=== PATIENT | female | born 1940 | race Caucasian/White ===

== ENCOUNTER 2019-06-05 09:53 | Outpatient (CLI) | payer MEDICARE, OTHER | END 2019-06-05 09:54 | disposition home or self-care (01) | LOC: DI 09:53 | PROVIDERS: ATTEND Internal Medicine | DX: Z12.31 Encounter for screening mammogram for malignant neoplasm of breast (principal) | CPT/HCPCS: 77063; 77067 ==

== ENCOUNTER 2021-12-22 08:00 | Outpatient (CLI) | payer MEDICARE, OTHER | END 2021-12-22 23:59 | LOC: LAB.R 08:00 | PROVIDERS: ATTEND Internal Medicine | DX: K52.9 Noninfective gastroenteritis and colitis, unspecified (principal) | CPT/HCPCS: 81599; 83630; 87045; 87177; 87209; 87329; 87427; 87449; 87493 ==

== ENCOUNTER 2022-07-17 15:19 | Outpatient (CLI) | payer MEDICARE, OTHER ==
[2022-07-17 15:42] LABS: BILIRUBIN,DIRECT 0.1 mg/dL (0.1-0.5); BILIRUBIN,TOTAL 0.5 mg/dL (0.2-1.0); TOTAL PROTEIN 7.8 g/dL (6.7-8.2)
== END 2022-07-17 15:20 | disposition home or self-care (01) ==
LOC: LAB 15:19
PROVIDERS: ATTEND Internal Medicine
DX: K75.0 Abscess of liver (principal); R74.8 Abnormal levels of other serum enzymes
CPT/HCPCS: 36415; 80076

== ENCOUNTER 2022-12-24 12:33 | Outpatient (CLI) | payer MEDICARE, OTHER ==
--- NOTE | 2022-12-24 19:32 | XRAY Report ---
PROCEDURE: Lumbar Spine 2 View INDICATIONS: LOW BACK PAIN TECHNIQUE: 2 views of the lumbar spine were acquired. COMPARISON: None. FINDINGS: Bones: 5 [id number] vertebrae are present. There is normal bony alignment. Small vertebral dayron dy osteophytes. Minimal multilevel spondylolisthesis. Lower lumbar spine facet joint hypertrophy. No vertebral body compression fractures. No suspicious bony lesions. Soft tissues: Overlying bowel gas pattern is normal. No suspicious soft tissue calcifications. Cho lecystectomy clips. IMPRESSION: Moderate degenerative change in the lumbar spine. No compression fracture. Reviewed by: Julio C Lewis MD on 12/24/2022 7:31 PM PST Approved by: Julio C Lewis MD on 12/24/2022 7:31 PM PST Station ID: [id number]
--- NOTE | 2022-12-24 19:33 | XRAY Report ---
PROCEDURE: Pelvis 1 View INDICATIONS: LOW BACK PAIN TECHNIQUE: 1 view(s) of the pelvis acquired. COMPARISON: None. FINDINGS: Bones: No fractures or dislocations. Moderate bilateral hip DJD. No suspicious bony lesions. Soft tissues: Visualized bowel gas pattern is normal. No suspicious soft tissue calcifications. IMPRESSION: Moderate bilateral hip DJD. Reviewed by: Julio C Lewis MD on 12/24/2022 7:32 PM PST Approved by: Julio C Lewis MD on 12/24/2022 7:32 PM PST Station ID: [id number]
== END 2022-12-24 12:34 | disposition home or self-care (01) ==
LOC: DI 12:33
PROVIDERS: ATTEND Internal Medicine
DX: M47.816 Spondylosis without myelopathy or radiculopathy, lumbar region (principal); M16.0 Bilateral primary osteoarthritis of hip

== ENCOUNTER 2023-02-16 12:15 | Outpatient (CLI) | payer MEDICARE, OTHER ==
--- NOTE | 2023-02-16 13:01 | CT Report ---
PROCEDURE: CT brain without contrast INDICATIONS: APHASIA,HYPERTNESION,NUMBNESS TECHNIQUE: Noncontrast 4.5 mm thick angled axial sections acquired from the foramen magnum to the vertex. For r adiation dose reduction, the following was used: automated exposure control, adjustment of mA and/or kV according to patient size. COMPARISON: None. FINDINGS: Image quality: Excellent. CSF spaces: Basal cisterns are patent. No extra-axial fluid collections. Ventricles are normal in size and shape. Brain: No midline shift. No intracranial masses or hemorrhage. Angela-white matter interface is norm al. Atrophy and white matter chronic ischemic change noted. Dense ICA vascular calcification in the cavernous segments. Skull and face: Calvarium and visualized facial bones are intact, without suspicious lesions. Incid ental hyperostosis interna Sinuses: Mucosal thickening noted in the frontal and anterior ethmoid sinuses IMPRESSION: Moderate atrophy and white matter chronic ischemic change Reviewed by: Shreyas Hackett MD on 02/16/2023 12:00 PM MERRY Approved by: Shreyas Hackett MD on 02/16/2023 12:00 PM AKDT Station ID: [id number]
== END 2023-02-16 12:16 | disposition home or self-care (01) ==
LOC: DI 12:15
PROVIDERS: ATTEND Internal Medicine
DX: R20.0 Anesthesia of skin (principal); I10 Essential (primary) hypertension; R47.01 Aphasia; G31.89 Other specified degenerative diseases of nervous system; I67.82 Cerebral ischemia

== ENCOUNTER 2023-03-08 14:16 | Outpatient (CLI) | payer MEDICARE, OTHER ==
[2023-03-08 14:35] LABS: BASOPHILS % (AUTO) 0.4 %; EOSINOPHILS % (AUTO) 1.1 %; HCT - HEMATOCRIT 39.4 % (37.0-47.0); HGB - HEMOGLOBIN 13.1 g/dL (12.0-16.0); LYMPHOCYTES % (AUTO) 50.7 %; MEAN CORPUSCULAR HEMOGLOBIN 30.2 pg (27.0-31.0); MEAN CORPUSCULAR HGB CONC 33.2 g/dL (32.0-36.0); MEAN CORPUSCULAR VOLUME 90.8 fL (81.0-99.0); MEAN PLATELET VOLUME 9.1 fL (7.9-10.8); NEUTROPHILS % (AUTO) 42.6 %; PLT - PLATELET COUNT 283 10^3/uL (130-450); RED BLOOD COUNT 4.34 10^6/uL (4.20-5.40); RED CELL DISTRIBUTION WIDTH 12.3 % (12.0-15.0); WHITE BLOOD COUNT 14.2 x10^3/uL (4.8-10.8)
[2023-03-08 14:37] LABS: SLIDE REVIEW? Indicated
[2023-03-08 14:38] LABS: ABNORMAL LYMPHS % (MANUAL) 0 %; BAND NEUTROPHILS % (MANUAL) 0 %
[2023-03-08 14:47] LABS: ALBUMIN 4.2 g/dL (3.2-5.5); BILIRUBIN,TOTAL 1.8 mg/dL (0.2-1.0); CALCIUM 9.4 mg/dL (8.5-10.3); CREATININE 1.1 mg/dL (0.4-1.0); TOTAL PROTEIN 8.4 g/dL (6.7-8.2)
[2023-03-08 14:56] LABS: EOSINOPHILS # (MANUAL) 0.3 10^3/uL (0-0.7); LYMPHOCYTES % (MANUAL) 49 %; MONOCYTES # (MANUAL) 0.1 10^3/uL (0.0-1.0); NEUTROPHILS # (MANUAL) 6.8 10^3/uL (1.5-6.6)
[2023-03-08 14:58] LABS: DIFFERENTIAL COMMENT MANUAL DIFFERENTIAL; PLATELET ESTIMATE, MANUAL NORMAL (130-450,000) (NORMAL); PLATELET MORPHOLOGY NORMAL APP (NORMAL); RBC MORPHOLOGY (MULTIPLE) NORMAL APPEARANCE (NORMAL)
== END 2023-03-08 14:17 | disposition home or self-care (01) ==
LOC: LAB 14:16
PROVIDERS: ATTEND Internal Medicine
DX: R10.13 Epigastric pain (principal); K83.09 Other cholangitis; K85.90 Acute pancreatitis without necrosis or infection, unspecified
CPT/HCPCS: 36415; 80053; 82150; 83690; 85025

== ENCOUNTER 2023-03-14 08:39 | Emergency (ER) | payer MEDICARE, OTHER ==
[2023-03-14 09:18] LABS: BASOPHILS # (AUTO) 0.1 10^3/uL (0.0-0.1); BASOPHILS % (AUTO) 0.5 %; EOSINOPHILS # (AUTO) 0.1 10^3/uL (0.0-0.7); EOSINOPHILS % (AUTO) 0.4 %; HCT - HEMATOCRIT 37.8 % (37.0-47.0); HGB - HEMOGLOBIN 12.7 g/dL (12.0-16.0); LYMPHOCYTES # (AUTO) 3.4 10^3/uL (1.5-3.5); MEAN CORPUSCULAR HEMOGLOBIN 30.3 pg (27.0-31.0); MEAN CORPUSCULAR HGB CONC 33.6 g/dL (32.0-36.0); MEAN CORPUSCULAR VOLUME 90.2 fL (81.0-99.0); MEAN PLATELET VOLUME 9.2 fL (7.9-10.8); MONOCYTES # (AUTO) 0.6 10^3/uL (0.0-1.0); MONOCYTES % (AUTO) 4.5 %; NEUTROPHILS % (AUTO) 70.1 %; PLT - PLATELET COUNT 270 10^3/uL (130-450); RED BLOOD COUNT 4.19 10^6/uL (4.20-5.40); RED CELL DISTRIBUTION WIDTH 12.2 % (12.0-15.0); WHITE BLOOD COUNT 14.2 x10^3/uL (4.8-10.8)
[2023-03-14 09:35] LABS: ALBUMIN 4.1 g/dL (3.2-5.5); ALBUMIN/GLOBULIN RATIO 0.9 (1.0-2.2); BILIRUBIN,TOTAL 2.1 mg/dL (0.2-1.0); CREATININE 1.1 mg/dL (0.4-1.0); POTASSIUM 2.9 mmol/L (3.5-5.0); TOTAL PROTEIN 8.7 g/dL (6.7-8.2)
[2023-03-14 09:59] LABS: BILIRUBIN,URINE NEGATIVE (NEGATIVE); GLUCOSE, URINE (UA) NEGATIVE (NEGATIVE); KETONES,URINE (UA) NEGATIVE (NEGATIVE); LEUKOCYTE ESTERASE, URINE SMALL (NEGATIVE); NITRITE,URINE NEGATIVE (NEGATIVE); OCCULT BLOOD,URINE SMALL (NEGATIVE); PROTEIN,URINE NEGATIVE (NEGATIVE); UROBILINOGEN,URINE 1 (NORMAL) E.U./dL (NORMAL)
[2023-03-14 10:03] LABS: CLARITY,URINE CLEAR (CLEAR)
[2023-03-14 10:10] LABS: BACTERIA,URINE Few /HPF (None Seen); RBC,URINE 0-5 /HPF (0-5); SQUAMOUS EPITHELIAL CELL,UR FEW Squamous (<= Few)
[2023-03-14] MEDS ORDERED: iohexoL-300 100 ML VIAL ONE (12:03)
[2023-03-14] MEDS ORDERED: iohexoL-300 100 ML VIAL IVP ONE (12:26)
--- NOTE | 2023-03-14 12:37 | CT Report ---
PROCEDURE: ABDOMEN/PELVIS W INDICATIONS: upper abd pain, elev LFTs CONTRAST: 100ml omni 300 TECHNIQUE: After the administration of IV contrast, 5 mm thick sections acquired from the diaphragms to the symp hysis. 5 mm thick coronal and sagittal reformats were acquired. For radiation dose reduction, the f ollowing was used: automated exposure control, adjustment of mA and/or kV according to patient size. COMPARISON: None FINDINGS: Image quality: Excellent. Lung bases and heart: Unremarkable. Liver: No solid mass. Gallbladder and biliary tree: Gallbladder surgically absent. There is pneumobilia within the gallblad ely Spleen: Calcifications along the posterior margin of the spleen. Pancreas: No pancreatic ductal dilation. Adrenals: No adrenal nodule. Kidneys and ureters: No hydronephrosis. No renal cystic lesion which requires follow up. No solid mas s. Bowel and peritoneum: No bowel distension. No pathologic free fluid. Lymph nodes: No central or retroperitoneal adenopathy. Vessels: No infrarenal aortic aneurysm. PELVIS Reproductive organs: The uterus is surgically absent. Bladder: No abnormal wall thickening, accounting for underdistension. Pelvic lymph nodes: No pelvic adenopathy by size criteria. Bones: No aggressive osseous abnormality. Other: No significant ventral or inguinal hernia. IMPRESSION: 1.No acute findings in the abdomen or pelvis. 2.Pneumobilia, a normal finding status post sphincterotomy and cholecystectomy. 3.Calcifications along the medial margin of the spleen likely reflects prior hemorrhage versus granul omatous disease. Reviewed by: Marquez Hall MD on 03/14/2023 11:36 AM MERRY Approved by: Marquez Hall MD on 03/14/2023 11:36 AM [email or web address] Station ID: [id number]
--- NOTE | 2023-03-14 13:36 | Ultrasound Report ---
PROCEDURE: Abdomen Limited INDICATIONS: upper abd pain, elevated LFTs TECHNIQUE: Real-time focused scanning was performed of the abdomen, with image documentation. COMPARISONS: None. FINDINGS: Liver: Liver is normal in size and homogeneous in echotexture. Increased echogenicity. Pneumobilia degrades liver evaluation. Gallbladder: Absent. Biliary ducts: Intrahepatic bile ducts are non-dilated. Extrahepatic bile duct caliber was not iden tified. Normal is 6-7 mm or less in diameter, or 10 mm or less post-cholecystectomy. Pancreas: Visualized portions of the pancreas are sonographically normal. Right kidney: Normal in size and echotexture. Right kidney measures 10.8 cm long. No hydronephrosis or nephrolithiasis. No solid masses. No complex renal cystic lesions which require follow-up. Aorta: Visualized aorta is normal in caliber at less than 3 cm. IVC: Intrahepatic inferior vena cava is patent. Miscellaneous: No free abdominal fluid. IMPRESSION: 1.Hepatic steatosis. 2.Pneumobilia, a finding of unknown clinical significance status post sphincterotomy. Reviewed by: Marquez Hall MD on 03/14/2023 12:34 PM MERRY Approved by: Marquez Hall MD on 03/14/2023 12:34 PM MERRY Station ID: [id number]
[2023-03-14] MEDS ORDERED: POTASSIUM CHLORIDE 20 MEQ TABLET PO STA (14:49)
[2023-03-14 15:09] VITALS: BP 167/91
--- NOTE | 2023-03-14 15:26 | ED Physician Documentation ---
History of Present Illness - Stated complaint Stated Complaint: ABD PX - Chief complaint Chief Complaint: Abd Pain - History obtained from History obtained from: Patient - Additonal information Additional information: The patient comes to the emergency department chief complaint of epigastric pain has been going on for the last few months. She states is just been steadily getting more intense and that she has been seeing her doctor, Dr. Dixon, for this. She says she came to the emergency department because Dr. Dixon has been trying to get her an ultrasound but has been told they have no availability. She had some laboratory studies done which showed elevated LFTs and so she is come here. She denies nausea or vomiting. She has not had any fevers or chills. She is had a history previously of a complicated course with postcholecystectomy choledocholithiasis. She had her gallbladder out over 20 years ago and then a couple of years ago, while [place], developed fevers and severe upper abdominal pain. She was found to have abscesses in her liver with choledocholithiasis. She was kept in the hospital on IV antibiotics and ERCP with sphincterotomy and stent placement was performed. She had been counseled at that time to have a repeat ERCP performed in 6 weeks but never did end up to have this done. Patient states she has been feeling well since but has developed this pain. She has had various endoscopies over the years and was told a number of years ago that she might have an ulcer. However, she never did receive any further intervention or follow-up for this. The patient is currently on Prilosec and recently had this doubled by her doctor, which has helped her symptoms. She denies jaundice. No other complaints at this time. 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(s) : None HEENT: Other Psych: Depression Musculoskeletal: Osteoarthritis Derm: None - Past Surgical History Past Surgical History: Yes General: Cholecystectomy, Appendectomy, Colonoscopy Ortho: Rotator cuff repair /[employer] APPRENTICE: Hysterectomy HEENT: Cataracts - Present Medications Home Medications: Ambulatory Orders Medication Instructions Recorded Confirmed Amlodipine Bes/Olmesartan Med 5 mg PO DAILY 01/05/14 03/14/23 [Baljeet 5-40 mg Tablet] Atorvastatin Calcium [Lipitor] 40 mg PO DAILY 01/05/14 03/14/23 Omeprazole [PriLOSEC] 20 mg PO BID 01/05/14 03/14/23 Losartan Potassium [Cozaar] 100 mg PO DAILY 03/14/23 03/14/23 Spironolactone [Aldactone] 25 mg PO DAILY 03/14/23 03/14/23 - Allergies Allergies/Adverse Reactions: Allergies Allergy/AdvReac Type Severity Reaction Status Date / Time lisinopril Allergy Severe Edema Verified 03/14/23 08:59 tape AdvReac Mild Rash Uncoded 03/14/23 08:59 - Social History Does the pt smoke?: No Smoking Status: Former smoker Does the pt drink ETOH?: Yes Does the pt have substance abuse?: No - Immunizations Immunizations are current?: Yes PD ED PE NORMAL - Vitals Vital signs reviewed: Yes - General General: Alert and oriented X 3, No acute distress, Well developed/nourished, Other (Very well-appearing elderly female in no apparent distress.) - HEENT HEENT: Atraumatic, PERRL, EOMI, Moist mucous membranes - Neck Neck: Supple, no meningeal sign - Cardiac Cardiac: RRR, No murmur - Respiratory Respiratory: No respiratory distress, Clear bilaterally - Abdomen Abdomen: Soft, Non distended, Other (Moderate tenderness epigastric region, otherwise nontender.) - Derm Derm: Normal color, Warm and dry, No rash - Extremities Extremities: No deformity, No edema - Neuro Neuro: Alert and oriented X 3 - Psych Psych: Normal mood, Normal affect Results - Vitals Vitals: Vital Signs - 24 hr 03/14/23 03/14/23 03/14/23 08:56 09:53 11:53 Temperature 36.8 C Heart Rate 101 H 93 89 Respiratory 16 16 14 Rate Blood Pressure 190/91 H 198/74 H 150/136 H O2 Saturation 98 100 100 03/14/23 03/14/23 13:17 15:07 Temperature Heart Rate 82 82 Respiratory 20 22 Rate Blood Pressure 170/83 H 167/91 H O2 Saturation 98 97 Oxygen O2 Source Room air - Labs Labs: Laboratory Tests 03/14/23 03/14/23 03/14/23 09:09 09:09 09:50 WBC 14.2 H RBC 4.19 L Hgb 12.7 Hct 37.8 MCV 90.2 MCH 30.3 MCHC 33.6 RDW 12.2 Plt Count 270 MPV 9.2 Neut # (Auto) 10.0 H Lymph # (Auto) 3.4 Haines # (Auto) 0.6 Eos # (Auto) 0.1 Baso # (Auto) 0.1 Absolute Nucleated RBC 0.00 Nucleated RBC % 0.0 Sodium 143 Potassium 2.9 L Chloride 107 Carbon Dioxide 23 Anion Gap 13.0 BUN 24 H Creatinine 1.1 H Estimated GFR (MDRD) 48 L Glucose 141 H Calcium 9.0 Total Bilirubin 2.1 H AST 172 H ALT 161 H Alkaline Phosphatase 1118 H Total Protein 8.7 H Albumin 4.1 Globulin 4.6 H Albumin/Globulin Ratio 0.9 L Lipase 83 H Urine Color YELLOW Urine Clarity CLEAR Urine pH 6.0 Ur Specific Keo 1.010 Urine Protein NEGATIVE Urine Glucose (UA) NEGATIVE Urine Ketones NEGATIVE Urine Occult Blood SMALL H Urine Nitrite NEGATIVE Urine Bilirubin NEGATIVE Urine Urobilinogen 1 (NORMAL) Ur Leukocyte Esterase SMALL H Urine RBC 0-5 Urine WBC 11-25 H Ur Squamous Epith Cells FEW Squamous Urine Bacteria Few Ur Microscopic Review INDICATED Urine Culture Comments INDICATED - Rads (name of study) Ultrasound abdomen Relevant Findings:: Prelim report reviewed (Unable to evaluate much, secondary to air), Final report received CT abdomen and pelvis Relevant Findings:: Final report received, See rad report (Pneumobilia consistent with previous stent placement and sphincterotomy. No acute findings.) PD Medical Decision Making - ED course Complexity details: reviewed old records, reviewed results, re-evaluated patient, considered differential, d/w patient ED course: Patient was overall very well-appearing and her abdomen exam was actually fairly benign. Her laboratory studies were mildly worsened in some cases since her last set on March 08, but without significant changes. She has already had elevated LFTs. Her CT scan showed pneumobilia which was consistent with her prior sphincterotomy and stent placement. The patient did have paperwork from her stent placement 2 years ago and at that time, she had been told to follow-up with a 6-week ERCP which was never done. I have discussed with her that it is very important that she follows up for this and that she speaks with her primary doctor about having a referral to gastroenterology. The patient also should have an endoscopy to evaluate for esophagitis and gastritis, given her symptoms. She is currently finding some relief with her increased dose of Prilosec and she should continue this. We discussed the usual indications for return. She is advised to call her primary care physician first thing tomorrow to set up a follow-up appointment. Departure - Departure Disposition: 01 Home, Self Care Clinical Impression: Abdominal pain Qualifiers: Abdominal location: upper abdomen, unspecified Qualified Code(s): R10.10 - Upper abdominal pain, unspecified Condition: Stable Instructions: ED Abdominal Pain Female Non-Specific Abdominal Pain Comments: Your CT scan shows some air in your biliary system, at which the radiologist has read as normal, considering your sphincterotomy and stent. The ultrasound was unable to be of any use, secondary to the air in your biliary system obscuring the view and the ability to take measurements. Your abdominal exam is benign, and your vital signs have looked good here. You do have elevations of some of your liver labs, and because of this, it is important that you Talk to your primary doctor about moving forward with gastroenterology referral, as he will likely need both ERCP and endoscopy. This is not needed emergently at this time, but is definitely a consideration for follow-up. You should continue the higher dose of Prilosec. If you develop severe abdominal pain, jaundice, or fevers please return to the emergency department. Please call Dr. Dixon's office first thing tomorrow to schedule a follow-up appointment. Discharge Date/Time: 03/14/23 15:42
== END 2023-03-14 15:42 | disposition home or self-care (01) ==
LOC: ED 08:39
DX: R10.13 Epigastric pain (principal); I10 Essential (primary) hypertension; E78.00 Pure hypercholesterolemia, unspecified; Z79.899 Other long term (current) drug therapy; Z87.891 Personal history of nicotine dependence
CPT/HCPCS: 36415; 74177; 76705; 80053; 81001; 83690; 85025; 87086; 99283; 99284; A9270; Q9967; 81003

== ENCOUNTER 2023-03-16 08:33 | Outpatient (CLI) | payer MEDICARE, OTHER ==
--- NOTE | 2023-03-16 11:03 | MRI Report ---
PROCEDURE: BRAIN WO INDICATIONS: TIA TECHNIQUE: Noncontrast axial T1 spin echo, axial T2 fast spin echo, sagittal and axial FLAIR, coronal T2 fast sp in echo, axial gradient echo, axial diffusion and ADC through the brain. COMPARISON: Correlation is made with head CT, 02/16/2023. FINDINGS: Image quality: Excellent. CSF Spaces: Basal cisterns are patent. No extra-axial fluid collections. Ventricles are normal in size and shape. Brain: No intracranial masses or hemorrhage. Angela/white matter interface is normal. Brainstem appe ars normal. Diffusion-weighted images demonstrate no acute ischemic insult. No chronic ischemic ins ults. Normal intravascular flow voids are present. Age-appropriate brain parenchymal volume loss an d chronic small vessel ischemic change can be seen. Skull and face: Calvarium has normal marrow signal. Orbits appear normal. Incidental note is made of bilateral lens replacements. Hyperostosis frontalis is incidentally noted, which is not frankly abnormal for a female patient of this age. Sinuses: Sinuses and mastoids are clear. IMPRESSION: No findings of acute or subacute infarction are seen. Age-appropriate brain parenchymal volume loss and chronic small vessel ischemic change can be seen. Reviewed by: David Ramos MD on 03/16/2023 10:02 AM MERRY Approved by: David Ramos MD on 03/16/2023 10:02 AM MERRY Station ID: [id number]
--- NOTE | 2023-03-16 13:12 | Ultrasound Report ---
PROCEDURE: Carotid Doppler Complete INDICATIONS: TIA TECHNIQUE: Color and pulse Doppler interrogation was performed of both carotid systems, with image documentation and velocity measurements. COMPARISON: None. FINDINGS: Right side: Brachial blood pressure: 155/61 mm Hg. Common carotid artery peak systolic velocity: 63 cm/sec. Internal carotid artery peak systolic velocity: 84 cm/sec. Internal carotid artery end diastolic velocity: 20 cm/sec. External carotid artery peak systolic velocity: 69 cm/sec. ICA/CCA peak systolic ratio: 1.33 . Angela scale imaging description: Mild atherosclerotic plaque Percent internal carotid artery stenosis: Less than 50 percent stenosis. Vertebral artery: Flow direction is antegrade. Left side: Brachial blood pressure: 155/65 mm Hg. Common carotid artery peak systolic velocity: 67 cm/sec. Internal carotid artery peak systolic velocity: 89 cm/sec. Internal carotid artery end diastolic velocity: 32 cm/sec. External carotid artery peak systolic velocity: 73 cm/sec. ICA/CCA peak systolic ratio: 1.33 . Angela scale imaging description: Moderate atherosclerotic plaque. Percent internal carotid artery stenosis: Less than 50 percent stenosis. Vertebral artery: Flow direction is antegrade. IMPRESSION: 1. In the right internal carotid artery, there is less than 50 percent stenosis based on peak systoli c velocity criteria. 2. In the left internal carotid artery, there is less than 50 percent stenosis based on peak systolic velocity criteria. 3. Antegrade blood flow within the right vertebral artery. 4. Antegrade blood flow within the left vertebral artery. The estimate of stenosis included in the report of the imaging study was calculated using the [facility]-end orsed standards of carotid artery stenosis. Reviewed by: Leonard Lewis on 03/16/2023 1:10 PM PDT Approved by: Leonard Lewis on 03/16/2023 1:10 PM PDT Station ID: [id number]
== END 2023-03-16 08:34 | disposition home or self-care (01) ==
LOC: DI 08:33
PROVIDERS: ATTEND Internal Medicine
DX: I65.23 Occlusion and stenosis of bilateral carotid arteries (principal)
CPT/HCPCS: 93880

== ENCOUNTER 2023-04-22 07:51 | Outpatient (CLI) | payer MEDICARE, OTHER | END 2023-04-22 07:52 | disposition home or self-care (01) | LOC: DI 07:51 | PROVIDERS: ATTEND Internal Medicine | DX: I10 Essential (primary) hypertension (principal); G45.9 Transient cerebral ischemic attack, unspecified; R01.1 Cardiac murmur, unspecified; I08.0 Rheumatic disorders of both mitral and aortic valves | CPT/HCPCS: 93306 ==

== ENCOUNTER 2023-04-27 14:28 | Outpatient (CLI) | payer MEDICARE, OTHER | END 2023-04-27 23:59 | disposition critical access hospital (66) | LOC: EMS 14:28 | DX: R10.9 Unspecified abdominal pain (principal) | CPT/HCPCS: A0425; A0429 ==

== ENCOUNTER 2023-04-27 14:51 | Emergency (ER) | payer MEDICARE, OTHER ==
--- NOTE | 2023-04-27 14:57 | ED Physician Documentation ---
PD HPI ABD PAIN - Stated complaint Stated Complaint: ABD PX - Chief complaint Chief Complaint: Abd Pain - History obtained from History obtained from: Patient - History of Present Illness Timing - onset: How many weeks ago (she has had intermittent upper abd cramping to sharp pain. With nausea but no consistent vomiting. Pain has increased and more consistent the past few days.) Timing - details: Gradual onset, Waxing and waning. No: Still present (she said it was still faintly present during exam, but when rechecked after GI cocktail, she says it was better already prior to taking the meds. She did not have urgency of BM here in ER. so unclear to establish improvement factors.) Quality: Cramping, Aching, Pain Location: RUQ, Epigastric Associated symptoms: Nausea, Loss of appetite, Weight loss. No: Fever, Vomiting, Diarrhea, Dysuria, Vaginal bleeding Similar symptoms before: No diagnosis Recently seen: Clinic (saw PMD and had MRI/carotids to eval for recent syncope. No acute findings. Was getting reerral to GI and her appt is in mid June.), Emergency Dept Review of Systems Constitutional: reports: Myalgias. denies: Fever, Chills Nose: denies: Rhinorrhea / runny nose, Congestion GI: reports: Abdominal Pain, Nausea. 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: Miscarriage(s) : None HEENT: Other Psych: Depression Musculoskeletal: Osteoarthritis Derm: None - Past Surgical History Past Surgical History: Yes General: Cholecystectomy, Appendectomy, Colonoscopy Ortho: Rotator cuff repair /BUTTONHOLE FACER: Hysterectomy HEENT: Cataracts - Present Medications Home Medications: Ambulatory Orders Medication Instructions Recorded Confirmed Amlodipine Bes/Olmesartan Med 5 mg PO DAILY 01/05/14 04/27/23 [Baljeet 5-40 mg Tablet] Atorvastatin Calcium [Lipitor] 40 mg PO DAILY 01/05/14 04/27/23 Omeprazole [PriLOSEC] 20 mg PO BID 01/05/14 04/27/23 Losartan Potassium [Cozaar] 100 mg PO DAILY 03/14/23 04/27/23 Spironolactone [Aldactone] 25 mg PO DAILY 03/14/23 04/27/23 HYDROcod/ACETAM 5/325 [[place] 5/325] 1 ea PO Q6H PRN #14 tablet 04/27/23 Ondansetron Odt [Zofran] 4 mg TL Q6H PRN #15 tablet 04/27/23 Sucralfate [Carafate] 1 gm PO ACHS #40 tablet 04/27/23 - Allergies Allergies/Adverse Reactions: Allergies Allergy/AdvReac Type Severity Reaction Status Date / Time lisinopril Allergy Severe Edema Verified 04/27/23 14:54 tape AdvReac Mild Rash Uncoded 03/14/23 08:59 - Social History Does the pt smoke?: No Smoking Status: Never smoker Does the pt drink ETOH?: Yes Does the pt have substance abuse?: No - Immunizations Immunizations are current?: Yes - POLST Patient has POLST: No PD ED PE NORMAL - Vitals Vital signs reviewed: Yes - General General: Alert and oriented X 3, No acute distress, Well developed/nourished - HEENT HEENT: PERRL - Neck Neck: Supple, no meningeal sign, No adenopathy - Cardiac Cardiac: No murmur. No: RRR (sinus tachycardia) - Respiratory Respiratory: Clear bilaterally - Abdomen Abdomen: Normal bowel sounds, Soft, Non distended, No organomegaly, Other (ten ely in epigastric area, without guarding nor percussion tenderness. ) Results - Vitals Vitals: Vital Signs - 24 hr 04/27/23 04/27/23 04/27/23 14:52 15:01 15:32 Temperature 38.3 C H Heart Rate 119 H 105 H Respiratory 18 18 16 Rate Blood Pressure 186/91 H 196/81 H O2 Saturation 98 100 04/27/23 04/27/23 04/27/23 16:01 16:09 16:15 Temperature Heart Rate 102 H Respiratory 16 17 17 Rate Blood Pressure 172/85 H O2 Saturation 98 04/27/23 16:22 Temperature Heart Rate Respiratory 16 Rate Blood Pressure O2 Saturation Oxygen O2 Source Room air - Labs Labs: Laboratory Tests 04/27/23 04/27/23 04/27/23 15:05 15:24 15:24 WBC 14.8 H RBC 4.23 Hgb 13.0 Hct 39.6 MCV 93.6 MCH 30.7 MCHC 32.8 RDW 12.9 Plt Count 232 MPV 9.0 Neut # (Auto) 11.7 H Lymph # (Auto) 1.9 [place] # (Auto) 1.1 H Eos # (Auto) 0.0 Baso # (Auto) 0.1 Absolute Nucleated RBC 0.00 Nucleated RBC % 0.0 Sodium 140 Potassium 3.6 Chloride 103 Carbon Dioxide 26 Anion Gap 11.0 BUN 16 Creatinine 0.8 Estimated GFR (MDRD) 69 L Glucose 123 H Calcium 9.4 Total Bilirubin 1.9 H AST 163 H ALT 194 H Alkaline Phosphatase 1040 H Total Protein 8.4 H Albumin 4.1 Globulin 4.3 H Albumin/Globulin Ratio 1.0 Lipase 48 Urine Color YELLOW Urine Clarity CLEAR Urine pH 6.0 Ur Specific [place] 1.010 Urine Protein TRACE Urine Glucose (UA) NEGATIVE Urine Ketones NEGATIVE Urine Occult Blood SMALL H Urine Nitrite NEGATIVE Urine Bilirubin NEGATIVE Urine Urobilinogen 1 (NORMAL) Ur Leukocyte Esterase SMALL H Urine RBC 0-5 Urine WBC >25 H Ur Squamous Epith Cells FEW Squamous Urine Bacteria Few Ur Microscopic Review INDICATED Urine Culture Comments INDICATED PD Medical Decision Making - ED course Complexity details: reviewed old records (prior CT and ultrasound reports. ), reviewed results (elevated white count 14K. She has elevated LFTs/Alk Phos but similar to prior trend. Her UA is suggestive of UTI but not fully convincing. Will await culture. ), considered differential (has had prior CCY with CBD blockage and ERCP/?stent many years ago. has not had abd pains RUQ per se. Has epigatric pains more, and she states recent addition of Omeprazole has helped quite a bit. ), d/w patient Reviewed Lab Results: has had recent abd US and CT scan without definite findings. considered but did not see productive to get repeat imaging. Could consider MRCP but not available this time of day. Given her pain epigastric, so as to consider ulcer/gastritis instead (with just chronic elevated FLTs unrelated). I would test for H. Pylori stool. Departure - Departure Disposition: 01 Home, Self Care Clinical Impression: Upper abdominal pain, Elevated LFTs Condition: Stable Record reviewed to determine appropriate education?: Yes Follow-Up: Abi Dixon MD [Provider Admit Priv/Credential] - Prescriptions: Sucralfate [Carafate] 1 gm PO ACHS #40 tablet HYDROcod/ACETAM 5/325 [[place] 5/325] 1 ea PO Q6H PRN #14 tablet PRN Reason: Pain Ondansetron Odt [Zofran] 4 mg TL Q6H PRN #15 tablet PRN Reason: Nausea / Vomiting Comments: Your liver enzymes (bilirubin, alk phos, ALT/AST) are similarly mildly elevated compared to prior lab testing. Your lipase is normal so no signs of mims creatitis. It is unclear how much of your symptoms are related to some sludging or impeded flow through the common bile duct. He said the omeprazole seem to have a improvement in your pain in general. It may be that your symptoms are largely related to gastritis or ulcer instead. As such I would add sacral fate/Carafate 3-4 times daily to help coat the stomach and see if that helps symptoms even more. Continue with the omeprazole twice daily or double dose daily. Use Tylenol every 4-6 hours if needed for pain or hydrocodone/acetaminophen if needed for worse pain episodes. Sounds like this to be particularly at night. It would be good to look for a potential infection of the stomach lining that may be causing some symptoms (Helicobacter pylori). The test for this is a stool test. Bring a sample of the stool in a specimen container to the lab and we can test for that to see if it needs separately treating. Follow-up with Dr. Dixon. See if she is able to expedite follow-up with the cleaning validation consultant at all. I sent [facility] in [place]. Discharge Date/Time: 04/27/23 16:45
[2023-04-27] MEDS ORDERED: MAG HYDROX/AL HYDROX/SIMETH 30 ML UDC PO STA (15:15)
[2023-04-27] MEDS ORDERED: LIDOCAINE VISCOUS 2% 15 ML ORAL SYRINGE MM STA (15:16)
[2023-04-27 15:23] LABS: BILIRUBIN,URINE NEGATIVE (NEGATIVE); GLUCOSE, URINE (UA) NEGATIVE (NEGATIVE); KETONES,URINE (UA) NEGATIVE (NEGATIVE); LEUKOCYTE ESTERASE, URINE SMALL (NEGATIVE); NITRITE,URINE NEGATIVE (NEGATIVE); OCCULT BLOOD,URINE SMALL (NEGATIVE); PROTEIN,URINE TRACE mg/dL (NEGATIVE); UROBILINOGEN,URINE 1 (NORMAL) E.U./dL (NORMAL)
[2023-04-27 15:26] LABS: CLARITY,URINE CLEAR (CLEAR)
[2023-04-27 15:29] LABS: BASOPHILS # (AUTO) 0.1 10^3/uL (0.0-0.1); BASOPHILS % (AUTO) 0.4 %; EOSINOPHILS % (AUTO) 0.3 %; HCT - HEMATOCRIT 39.6 % (37.0-47.0); LYMPHOCYTES # (AUTO) 1.9 10^3/uL (1.5-3.5); LYMPHOCYTES % (AUTO) 12.8 %; MEAN CORPUSCULAR HEMOGLOBIN 30.7 pg (27.0-31.0); MEAN CORPUSCULAR HGB CONC 32.8 g/dL (32.0-36.0); MEAN CORPUSCULAR VOLUME 93.6 fL (81.0-99.0); MONOCYTES # (AUTO) 1.1 10^3/uL (0.0-1.0); MONOCYTES % (AUTO) 7.1 %; NEUTROPHILS # (AUTO) 11.7 10^3/uL (1.5-6.6); PLT - PLATELET COUNT 232 10^3/uL (130-450); RED BLOOD COUNT 4.23 10^6/uL (4.20-5.40); RED CELL DISTRIBUTION WIDTH 12.9 % (12.0-15.0); WHITE BLOOD COUNT 14.8 x10^3/uL (4.8-10.8)
[2023-04-27 15:36] LABS: BACTERIA,URINE Few /HPF (None Seen); RBC,URINE 0-5 /HPF (0-5); SQUAMOUS EPITHELIAL CELL,UR FEW Squamous (<= Few); WBC,URINE >25 /HPF (0-5)
[2023-04-27 15:52] LABS: ALBUMIN 4.1 g/dL (3.2-5.5); BILIRUBIN,TOTAL 1.9 mg/dL (0.2-1.0); CALCIUM 9.4 mg/dL (8.5-10.3); CREATININE 0.8 mg/dL (0.4-1.0); POTASSIUM 3.6 mmol/L (3.5-5.0); TOTAL PROTEIN 8.4 g/dL (6.7-8.2)
[2023-04-27 16:20] VITALS: BP 172/85
== END 2023-04-27 16:45 | disposition home or self-care (01) ==
LOC: ED 14:51
DX: R10.11 Right upper quadrant pain (principal); R10.13 Epigastric pain; R79.89 Other specified abnormal findings of blood chemistry; I10 Essential (primary) hypertension; E78.00 Pure hypercholesterolemia, unspecified; Z79.899 Other long term (current) drug therapy
CPT/HCPCS: 36415; 80053; 81001; 81003; 83690; 85025; 87086; 87338; 99283

== ENCOUNTER 2023-05-24 10:47 | Outpatient (CLI) | payer MEDICARE, OTHER ==
[2023-05-24 11:26] LABS: BASOPHILS # (AUTO) 0.1 10^3/uL (0.0-0.1); BASOPHILS % (AUTO) 0.6 %; EOSINOPHILS # (AUTO) 0.3 10^3/uL (0.0-0.7); EOSINOPHILS % (AUTO) 2.1 %; HCT - HEMATOCRIT 36.4 % (37.0-47.0); HGB - HEMOGLOBIN 12.2 g/dL (12.0-16.0); LYMPHOCYTES # (AUTO) 6.2 10^3/uL (1.5-3.5); LYMPHOCYTES % (AUTO) 45.9 %; MEAN CORPUSCULAR HEMOGLOBIN 30.7 pg (27.0-31.0); MEAN CORPUSCULAR HGB CONC 33.5 g/dL (32.0-36.0); MEAN CORPUSCULAR VOLUME 91.7 fL (81.0-99.0); MONOCYTES # (AUTO) 0.7 10^3/uL (0.0-1.0); MONOCYTES % (AUTO) 5.4 %; NEUTROPHILS # (AUTO) 6.1 10^3/uL (1.5-6.6); NEUTROPHILS % (AUTO) 45.6 %; PLT - PLATELET COUNT 266 10^3/uL (130-450); RED BLOOD COUNT 3.97 10^6/uL (4.20-5.40); RED CELL DISTRIBUTION WIDTH 12.6 % (12.0-15.0); WHITE BLOOD COUNT 13.4 x10^3/uL (4.8-10.8)
[2023-05-24 11:31] LABS: ESTIMATED AVERAGE GLUCOSE 117 mg/dL (70-100); HEMOGLOBIN A1c% 5.7 % (4.27-6.07)
[2023-05-24 11:44] LABS: ALBUMIN 3.9 g/dL (3.2-5.5); ALBUMIN/GLOBULIN RATIO 1.1 (1.0-2.2); ALKALINE PHOSPHATASE 426 IU/L (42-121); ALT ALANINE AMINOTRANSFERASE 24 IU/L (10-60); AST ASPARTATE AMINOTRANSFERASE 20 IU/L (10-42); BILIRUBIN,TOTAL 0.9 mg/dL (0.2-1.0); BUN - BLOOD UREA NITROGEN 19 mg/dL (6-20); CALCIUM 8.7 mg/dL (8.5-10.3); CARBON DIOXIDE - CO2 27 mmol/L (21-32); CHLORIDE 102 mmol/L (101-111); CHOL/HDL RATIO 4.3 (<4.4); CHOLESTEROL 189 mg/dL; CREATININE 0.9 mg/dL (0.4-1.0); GAMMA GLUTAMYL TRANSPEPTIDASE 544 IU/L (8-38); GFR - MDRD 60 (>89); GLUCOSE 113 mg/dL (70-100); HDL CHOLESTEROL 44 mg/dL; LDL CHOLESTEROL,CALCULATED 79 mg/dL; LDL/HDL RATIO 1.8 (<4.4); POTASSIUM 3.3 mmol/L (3.5-5.0); SODIUM 141 mmol/L (135-145); TOTAL PROTEIN 7.6 g/dL (6.7-8.2); TRIGLYCERIDES 331 mg/dL; VLDL CHOLESTEROL 66 mg/dL
[2023-05-24 12:36] LABS: SLIDE REVIEW? Indicated; WBC MORPHOLOGY (MULTIPLE) 2+ REACTIVE LYMPHS (NORMAL)
== END 2023-05-24 10:48 | disposition home or self-care (01) ==
LOC: LAB 10:47
PROVIDERS: ATTEND Internal Medicine
DX: I10 Essential (primary) hypertension (principal); R10.9 Unspecified abdominal pain; E78.5 Hyperlipidemia, unspecified; K76.0 Fatty (change of) liver, not elsewhere classified
CPT/HCPCS: 36415; 80053; 80061; 82977; 83036; 83721; 84443; 85025

== ENCOUNTER 2023-10-28 14:42 | Outpatient (CLI) | payer MEDICARE, OTHER ==
--- NOTE | 2023-10-29 10:37 | XRAY Report ---
PROCEDURE: Chest 2 View X-Ray INDICATIONS: ACUTE COUGH TECHNIQUE: 2 views of the chest were acquired. COMPARISON: None. FINDINGS: Surgical changes and devices: None. Lungs and pleura: No pleural effusions or pneumothorax. Lungs are clear. Mediastinum: Mediastinal contours appear normal. Heart size is normal. Bones and chest wall: No suspicious bony lesions. Overlying soft tissues appear unremarkable. IMPRESSION: No acute cardiopulmonary process. Reviewed by: Tyesha Valdez MD on 10/29/2023 10:36 AM [facility] Approved by: Tyesha Valdez MD on 10/29/2023 10:36 AM [facility] Station ID: [id number]
== END 2023-10-28 14:43 | disposition home or self-care (01) ==
LOC: DI 14:42
PROVIDERS: ATTEND Internal Medicine
DX: R05.1 Acute cough (principal); M54.9 Dorsalgia, unspecified

== ENCOUNTER 2024-06-05 08:17 | Outpatient (CLI) | payer MEDICARE, OTHER ==
[2024-06-05 08:42] LABS: BASOPHILS # (AUTO) 0.1 10^3/uL (0.0-0.1); BASOPHILS % (AUTO) 0.7 %; EOSINOPHILS # (AUTO) 0.2 10^3/uL (0.0-0.7); EOSINOPHILS % (AUTO) 2.2 %; HCT - HEMATOCRIT 36.3 % (37.0-47.0); HGB - HEMOGLOBIN 12.4 g/dL (12.0-16.0); LYMPHOCYTES # (AUTO) 4.9 10^3/uL (1.5-3.5); LYMPHOCYTES % (AUTO) 45.8 %; MEAN CORPUSCULAR HEMOGLOBIN 31.1 pg (27.0-31.0); MEAN CORPUSCULAR HGB CONC 34.2 g/dL (32.0-36.0); MEAN PLATELET VOLUME 9.2 fL (7.9-10.8); MONOCYTES # (AUTO) 0.6 10^3/uL (0.0-1.0); MONOCYTES % (AUTO) 5.7 %; NEUTROPHILS # (AUTO) 4.9 10^3/uL (1.5-6.6); NEUTROPHILS % (AUTO) 45.2 %; PLT - PLATELET COUNT 225 10^3/uL (130-450); RED BLOOD COUNT 3.99 10^6/uL (4.20-5.40); RED CELL DISTRIBUTION WIDTH 12.2 % (12.0-15.0); WHITE BLOOD COUNT 10.7 x10^3/uL (4.8-10.8)
[2024-06-05 08:46] LABS: ALBUMIN 4.2 g/dL (3.2-5.5); ALBUMIN/GLOBULIN RATIO 1.4 (1.0-2.2); ALKALINE PHOSPHATASE 137 IU/L (42-121); ALT ALANINE AMINOTRANSFERASE 12 IU/L (10-60); AST ASPARTATE AMINOTRANSFERASE 14 IU/L (10-42); BILIRUBIN,TOTAL 0.6 mg/dL (0.2-1.0); BUN - BLOOD UREA NITROGEN 16 mg/dL (6-20); CALCIUM 9.8 mg/dL (8.5-10.3); CARBON DIOXIDE - CO2 26 mmol/L (21-32); CHLORIDE 106 mmol/L (101-111); CHOL/HDL RATIO 8.1 (<4.4); CHOLESTEROL 298 mg/dL; CREATININE 0.8 mg/dL (0.6-1.3); GFR - MDRD 68 (>89); GLUCOSE 114 mg/dL (74-104); HDL CHOLESTEROL 37 mg/dL; POTASSIUM 3.6 mmol/L (3.5-4.5); SODIUM 140 mmol/L (135-145); TOTAL PROTEIN 7.1 g/dL (6.4-8.9); TRIGLYCERIDES 606 mg/dL
[2024-06-05 09:01] LABS: THYROID STIMULATING HORMONE 2.87 uIU/mL (0.34-5.60)
[2024-06-05 14:21] LABS: LDL CHOLESTEROL,DIRECT 102 mg/dL (75-193); LDLD/HDL RATIO 2.8 (<4.4)
[2024-06-05 14:37] LABS: ESTIMATED AVERAGE GLUCOSE 108 mg/dL (70-100); HEMOGLOBIN A1c% 5.4 % (4.27-6.07)
== END 2024-06-05 08:18 | disposition home or self-care (01) ==
LOC: LAB 08:17
PROVIDERS: ATTEND Internal Medicine
DX: Z00.00 Encounter for general adult medical examination without abnormal findings (principal); D64.9 Anemia, unspecified; R19.7 Diarrhea, unspecified; K21.9 Gastro-esophageal reflux disease without esophagitis; E78.5 Hyperlipidemia, unspecified; I10 Essential (primary) hypertension; R73.01 Impaired fasting glucose; M54.50 Low back pain, unspecified; I34.0 Nonrheumatic mitral (valve) insufficiency; Z79.899 Other long term (current) drug therapy; G45.9 Transient cerebral ischemic attack, unspecified
CPT/HCPCS: 36415; 80053; 80061; 83036; 83721; 84443; 85025

== ENCOUNTER 2024-06-09 09:05 | Outpatient (CLI) | payer MEDICARE, OTHER ==
--- NOTE | 2024-06-09 16:01 | XRAY Report ---
PROCEDURE: Lumbar Spine 2-3V INDICATIONS: LOW BACK PAIN TECHNIQUE: 2 views of the lumbar spine were acquired. COMPARISON: None. FINDINGS: Surgical change: Surgical clips project over the right upper quadrant.. Bones: 5 [id number] vertebrae are present. There is expected bony alignment. No vertebral body compression fractures. No suspicious bony lesions. Soft tissues: Severe atherosclerotic calcifications of the aorta. IMPRESSION: No acute osseous abnormality seen Reviewed by: Calvin Narvaez MD on 06/09/2024 4:00 PM PDT Approved by: Calvin Narvaez MD on 06/09/2024 4:00 PM PDT Station ID: [id number]
== END 2024-06-09 09:06 | disposition home or self-care (01) ==
LOC: DI 09:05
PROVIDERS: ATTEND Internal Medicine
DX: M54.50 Low back pain, unspecified (principal)

== ENCOUNTER 2024-06-23 08:59 | Outpatient (CLI) | payer MEDICARE, OTHER ==
--- NOTE | 2024-06-26 08:27 | Mammography Report ---
BILATERAL DIGITAL SCREENING MAMMOGRAM 3D/2D: 06/23/2024 CLINICAL: Routine screening. Comparison is made to exams dated[facility]. There are scattered areas of fibroglandular density in both breasts (category b / 25%-50% glandular t issue). No significant masses, calcifications, or other findings are seen in either breast. There has been no significant interval change. IMPRESSION: NEGATIVE There is no mammographic evidence of malignancy. A 1 year screening mammogram is recommended. Based on the Tyrer Cuzick model (a risk assessment model) the patient's lifetime risk is 0.4% and her 10 year risk is 0.0%. According to the ACR, ACS, and NCCN guidelines, an annual breast MRI exam kd g with mammogram is recommended if the patient's lifetime risk is 20% or greater. This exam was interpreted at Station ID: [id number]. NOTE: For mammograms, a report in lay terms will be sent to the patient. Approximately 15% of breast malignancies will not be visualized mammographically. In the management of a palpable breast mass, a negative mammogram must not discourage biopsy of a clinically suspicious lesion. Electronically Signed By: Jayesh adams/inocencia:06/23/2024 12:14:31 letter sent: No_Letter ACR BI-RADS Category 1: Negative 3341F PARENCHYMAL PATTERN: (A) - The breast(s) demonstrate(s) scattered fibroglandular densities. BI-RADS CATEGORY: (1) - 1 RECOMMENDATION: (ANNUAL) - Recommend routine annual screening mammography. [id number] 1 year screening LATERALITY: (B)
== END 2024-06-23 09:00 | disposition home or self-care (01) ==
LOC: DI 08:59
PROVIDERS: ATTEND Internal Medicine
DX: Z12.31 Encounter for screening mammogram for malignant neoplasm of breast (principal)